=== PATIENT | male | born 1950 | race Caucasian/White ===

== ENCOUNTER → 2018-04-24 14:05 | Emergency (ER) | payer MEDICARE ==
[2018-04-24 14:10] VITALS: BP 142/84
--- NOTE | 2018-04-24 16:50 | ED ---
Lower Extremity - HPI Summary HPI Summary: Rt ankle pain, swelling, bruising since injury today. Has been ambulating on leg - took 3 ibuprofen prior to arrival. - History of Current Complaint Chief Complaint: EDExtremityLower Stated Complaint: RIGHT ANKLE INJURY Time Seen by Provider: 04/24/18 15:09 Hx Obtained From: Patient Pain Intensity: 4 - Allergies/Home Medications Allergies/Adverse Reactions: Allergies Allergy/AdvReac Type Severity Reaction Status Date / Time No Known Allergies Allergy Verified 04/24/18 14:10 PMH/Surg Hx/FS Hx/Imm Hx Infectious Disease History: No Infectious Disease History: Denies: Traveled Outside the [place] in Last 30 Days - Social History Alcohol Use: Rare Substance Use Type: Reports: None Smoking Status (MU): Never Smoked Tobacco Physical Exam Vital Signs On Initial Exam: Initial Vitals Temp Pulse Resp BP Pulse Ox 97.9 F 72 16 142/84 99 04/24/18 14:08 04/24/18 14:08 04/24/18 14:08 04/24/18 14:08 04/24/18 14:08 Procedures - Splinting Right Lower Extremity Hand-Made Type: plaster Splint: posterior walking - + "U" Pre-Proc Neuro Vasc Exam: normal Post-Proc Neuro Vasc Exam: normal Diagnostics - Vital Signs Vital Signs Temp Pulse Resp BP Pulse Ox 04/24/18 14:08 97.9 F 72 16 142/84 99 - Laboratory Lab Statement: Any lab studies that have been ordered have been reviewed, and results considered in the medical decision making process. Lower Extremity Course/Dx - Diagnoses Provider Diagnoses: Fracture of medial malleolus, right, closed Discharge - Sign-Out/Discharge Documenting (check all that apply): Patient Departure - Discharge Plan Condition: Stable Disposition: HOME Patient Education Materials: Ankle Fracture (ED), Crutch Instructions (ED), Splint Care (ED) Forms: *Work Release Referrals: Odell Mancilla MD [Medical Doctor] - Additional Instructions: REST, ICE, ELEVATE AND KEEP SPLINT CLEAN, DRY AND IN PLACE UNTIL SEEN BY ORTHOPEDICS. Call orthopedics (Dr. Mancilla) Thursday to schedule follow-up. You may take ibuprofen alternating with acetaminophen as needed for pain *If you develop numbness, tingling, weakness, swelling or skin discoloration, loosen SHELLY wrap and elevate arm for 20 minutes. If symptoms persist, return to ED - Billing Disposition and Condition Condition: STABLE Disposition: Home
--- NOTE | 2018-04-24 16:52 | RAD ---
HISTORY: Rt ankle swelling, bruising, injury since fall COMPARISONS: None VIEWS: 3 , Frontal, lateral, and oblique views of the right ankle FINDINGS: BONE DENSITY: Normal. BONES: There is a minimally displaced fracture through the medial malleolus. There is a questionable nonspecific fracture of the posterior distal tibia. JOINTS: There is no arthropathy. ALIGNMENT: There is no dislocation. SOFT TISSUES: Unremarkable. OTHER FINDINGS: None. IMPRESSION: MINIMALLY DISPLACED FRACTURE OF THE MEDIAL MALLEOLUS WITH QUESTIONABLE NONDISPLACED FRACTURE OF THE POSTERIOR DISTAL TIBIA.
== END | disposition home or self-care (01) ==
LOC: ED 14:05
DX: S82.51XA Displaced fracture of medial malleolus of right tibia, initial encounter for closed fracture (principal); X58.XXXA Exposure to other specified factors, initial encounter; Y92.9 Unspecified place or not applicable
CPT/HCPCS: 29405; 99282